=== PATIENT | male | born 1955 | race Two or more races ===

== ENCOUNTER 2023-07-04 14:20 | Day surgery (SDC) | payer OTHER ==
[~2023-07-04 14:20] MED LIST: DECITABINE (DACOGEN) 10 MG/1 ML SQ SQ ONE
[2023-07-04 15:11] LABS: BASO % 0.8 % (0-2.0); HEMATOCRIT 26.6 % (35.4-49); HEMOGLOBIN 8.5 GM/dL (11.7-16.9); LYMPH % 16.3 % (8-40); MCH 39.5 pg (25.7-33.7); MEAN CELL VOLUME 123.5 fl (80-96); MEAN PLT VOLUME 10.8 fl (7.5-11.1); MONO % 9.1 % (3.8-10.2); NEUT % 72.8 % (42.8-82.8); PLATELET COUNT 70 10^3/uL (134-434); RBC 2.15 M/mm3 (4.00-5.60); RDW 15.5 % (11.9-15.9); WHITE BLOOD COUNT 3.6 K/mm3 (4.0-10.0)
[2023-07-04 15:25] LABS: POTASSIUM 4.3 mmol/L (3.5-5.1)
[2023-07-04 15:27] LABS: CALCIUM 8.5 mg/dL (8.5-10.1)
[2023-07-04 15:28] LABS: ALBUMIN 3.8 g/dl (3.4-5.0); BLOOD UREA NITROGEN 14.7 mg/dL (7-18)
[2023-07-04 15:30] LABS: BILIRUBIN,DIRECT 0.2 mg/dL (0.0-0.2)
[2023-07-04 15:31] LABS: CREATININE 0.8 mg/dL (0.55-1.3)
[2023-07-04 15:32] LABS: BILIRUBIN,TOTAL 0.8 mg/dL (0.2-1); TOT PROT 6.8 g/dl (6.4-8.2)
[2023-07-04 15:50] LABS: ANISOCYTOSIS 2+; MACROCYTOSIS 2+; OVALOCYTE 2+
[2023-07-04 17:17] VITALS: BP 116/64; PULSE 76; RESP 18; TEMP 98.1
== END 2023-07-04 14:40 | disposition home or self-care (01) ==
LOC: JONCNONCHE 14:20 → J7W 14:21 → JONCNONCHE 14:40
PROVIDERS: ATTEND Internal Medicine Hematology & Oncology
DX: Z51.11 Encounter for antineoplastic chemotherapy (principal); D46.9 Myelodysplastic syndrome, unspecified; L98.2 Febrile neutrophilic dermatosis [Sweet]
CPT/HCPCS: 36415; 80048; 80076; 83615; 84550; 85025; 96402; J0894

== ENCOUNTER 2023-07-11 12:56 | Day surgery (SDC) | payer OTHER ==
[2023-07-11 13:59] LABS: BASO % 0.5 % (0-2.0); EOS % 1.2 % (0-4.5); HEMATOCRIT 24.4 % (35.4-49); HEMOGLOBIN 7.8 GM/dL (11.7-16.9); LYMPH % 10.9 % (8-40); MCHC 32.1 g/dl (32.0-35.9); MEAN CELL VOLUME 124.7 fl (80-96); MEAN PLT VOLUME 10.9 fl (7.5-11.1); NEUT % 79.4 % (42.8-82.8); PLATELET COUNT 58 10^3/uL (134-434); RBC 1.96 M/mm3 (4.00-5.60); RDW 16.4 % (11.9-15.9); WHITE BLOOD COUNT 4.6 K/mm3 (4.0-10.0)
[2023-07-11 14:19] LABS: MCH 40.1 pg (25.7-33.7)
[2023-07-11 14:32] LABS: POTASSIUM 4.4 mmol/L (3.5-5.1)
[2023-07-11 14:35] LABS: ALBUMIN 3.8 g/dl (3.4-5.0); BLOOD UREA NITROGEN 15.9 mg/dL (7-18); CALCIUM 8.4 mg/dL (8.5-10.1)
[2023-07-11 14:37] LABS: BILIRUBIN,DIRECT 0.2 mg/dL (0.0-0.2)
[2023-07-11 14:38] LABS: URIC ACID 5.1 mg/dL (2.6-7.2)
[2023-07-11 14:39] LABS: BILIRUBIN,TOTAL 0.7 mg/dL (0.2-1); TOT PROT 6.6 g/dl (6.4-8.2)
[2023-07-11 14:43] LABS: CREATININE 0.8 mg/dL (0.55-1.3)
[2023-07-11 15:30] LABS: ANISOCYTOSIS 1+; MACROCYTOSIS 3+
[2023-07-11 18:34] VITALS: BP 105/60; PULSE 72; RESP 20; TEMP 98.4
== END 2023-07-11 15:10 | disposition home or self-care (01) ==
LOC: JONCNONCHE 12:56 → J7W 12:56 → JONCNONCHE 15:10
PROVIDERS: ATTEND Internal Medicine Hematology & Oncology
DX: D46.9 Myelodysplastic syndrome, unspecified (principal)
CPT/HCPCS: 36415; 80048; 80076; 83615; 84550; 85025; 96401; J0894

== ENCOUNTER 2023-07-18 14:01 | Day surgery (SDC) | payer OTHER ==
[2023-07-18 15:34] LABS: POTASSIUM 4.3 mmol/L (3.5-5.1)
[2023-07-18 15:36] LABS: BLOOD UREA NITROGEN 15.4 mg/dL (7-18); CALCIUM 9.1 mg/dL (8.5-10.1)
[2023-07-18 15:37] LABS: ALBUMIN 3.9 g/dl (3.4-5.0)
[2023-07-18 15:39] LABS: BILIRUBIN,DIRECT 0.3 mg/dL (0.0-0.2); CREATININE 0.8 mg/dL (0.55-1.3); URIC ACID 4.4 mg/dL (2.6-7.2)
[2023-07-18 15:40] LABS: EOS % 1.1 % (0-4.5); HEMATOCRIT 24.3 % (35.4-49); HEMOGLOBIN 7.9 GM/dL (11.7-16.9); LYMPH % 16.1 % (8-40); MCHC 32.3 g/dl (32.0-35.9); MEAN CELL VOLUME 124.9 fl (80-96); MEAN PLT VOLUME 11.2 fl (7.5-11.1); MONO % 10.2 % (3.8-10.2); NEUT % 71.6 % (42.8-82.8); PLATELET COUNT 52 10^3/uL (134-434); RBC 1.95 M/mm3 (4.00-5.60); RDW 17.2 % (11.9-15.9); WHITE BLOOD COUNT 3.2 K/mm3 (4.0-10.0)
[2023-07-18 15:41] LABS: BILIRUBIN,TOTAL 0.7 mg/dL (0.2-1); MCH 40.4 pg (25.7-33.7); TOT PROT 6.7 g/dl (6.4-8.2)
[2023-07-18 16:55] VITALS: BP 123/61; PULSE 70; RESP 18; TEMP 98.6
== END 2023-07-18 16:50 | disposition home or self-care (01) ==
LOC: JONCNONCHE 14:01 → J7W 14:03 → JONCNONCHE 16:50
PROVIDERS: ATTEND Internal Medicine Hematology & Oncology
DX: Z51.11 Encounter for antineoplastic chemotherapy (principal); D46.9 Myelodysplastic syndrome, unspecified
CPT/HCPCS: 36415; 80048; 80076; 83615; 84550; 85025; 96401; J0894

== ENCOUNTER 2023-07-25 13:57 | Day surgery (SDC) | payer OTHER ==
[2023-07-18 15:12] LABS: BASO % 0.7 % (0-2.0); EOS % 1.3 % (0-4.5); HEMATOCRIT 23.9 % (35.4-49); HEMOGLOBIN 7.9 GM/dL (11.7-16.9); LYMPH % 16.1 % (8-40); MEAN CELL VOLUME 124.2 fl (80-96); MEAN PLT VOLUME 10.4 fl (7.5-11.1); MONO % 10.9 % (3.8-10.2); PLATELET COUNT 46 10^3/uL (134-434); RBC 1.92 M/mm3 (4.00-5.60); RDW 16.7 % (11.9-15.9); WHITE BLOOD COUNT 3.3 K/mm3 (4.0-10.0)
[2023-07-18 15:37] LABS: POTASSIUM 4.3 mmol/L (3.5-5.1)
[2023-07-18 15:44] LABS: BLOOD UREA NITROGEN 15.4 mg/dL (7-18); CALCIUM 8.4 mg/dL (8.5-10.1)
[2023-07-18 15:45] LABS: ALBUMIN 3.8 g/dl (3.4-5.0)
[2023-07-18 15:46] LABS: URIC ACID 4.7 mg/dL (2.6-7.2)
[2023-07-18 15:48] LABS: BILIRUBIN,DIRECT 0.3 mg/dL (0.0-0.2); CREATININE 0.8 mg/dL (0.55-1.3)
[2023-07-18 15:49] LABS: ANISOCYTOSIS 1+; BILIRUBIN,TOTAL 0.9 mg/dL (0.2-1); MACROCYTOSIS 1+; OVALOCYTE 1+; TOT PROT 6.6 g/dl (6.4-8.2)
[2023-07-25 14:36] LABS: HEMOGLOBIN 7.3 GM/dL (11.7-16.9); MCH 39.8 pg (25.7-33.7); MCHC 31.6 g/dl (32.0-35.9); MEAN CELL VOLUME 126.2 fl (80-96); MEAN PLT VOLUME 9.3 fl (7.5-11.1); PLATELET COUNT 72 10^3/uL (134-434); RBC 1.83 M/mm3 (4.00-5.60); RDW 17.8 % (11.9-15.9); WHITE BLOOD COUNT 3.2 K/mm3 (4.0-10.0)
[2023-07-25 14:59] LABS: POTASSIUM 4.2 mmol/L (3.5-5.1)
[2023-07-25 15:04] LABS: BLOOD UREA NITROGEN 15.2 mg/dL (7-18); CALCIUM 8.6 mg/dL (8.5-10.1)
[2023-07-25 15:06] LABS: ALBUMIN 3.5 g/dl (3.4-5.0)
[2023-07-25 15:07] LABS: BILIRUBIN,DIRECT 0.2 mg/dL (0.0-0.2)
[2023-07-25 15:08] LABS: CREATININE 0.9 mg/dL (0.55-1.3)
[2023-07-25 15:09] LABS: BILIRUBIN,TOTAL 0.6 mg/dL (0.2-1)
[2023-07-25 15:11] LABS: URIC ACID 5.8 mg/dL (2.6-7.2)
[2023-07-25 15:22] LABS: ANISOCYTOSIS 1+; MACROCYTOSIS 3+
[2023-07-25 17:37] VITALS: BP 107/52; PULSE 74; RESP 18; TEMP 97.9
== END 2023-07-25 15:40 | disposition home or self-care (01) ==
LOC: JONCNONCHE 13:57 → J7W 13:59 → JONCNONCHE 15:40
PROVIDERS: ATTEND Internal Medicine Hematology & Oncology
DX: Z51.11 Encounter for antineoplastic chemotherapy (principal); D46.9 Myelodysplastic syndrome, unspecified
CPT/HCPCS: 36415; 80048; 80076; 83615; 84550; 85025; 96401; J0894

== ENCOUNTER 2023-08-01 12:28 | Day surgery (SDC) | payer OTHER ==
[2023-08-01 12:57] LABS: HEMATOCRIT 25.3 % (35.4-49); HEMOGLOBIN 8.1 GM/dL (11.7-16.9); MCHC 32.2 g/dl (32.0-35.9); MEAN CELL VOLUME 128.1 fl (80-96); PLATELET COUNT 68 10^3/uL (134-434); RBC 1.97 M/mm3 (4.00-5.60); WHITE BLOOD COUNT 3.6 K/mm3 (4.0-10.0)
[2023-08-01 13:02] LABS: MCH 41.3 pg (25.7-33.7)
[2023-08-01 13:34] LABS: POTASSIUM 3.7 mmol/L (3.5-5.1)
[2023-08-01 13:38] LABS: CALCIUM 8.7 mg/dL (8.5-10.1)
[2023-08-01 13:41] LABS: ALBUMIN 3.5 g/dl (3.4-5.0); ANISOCYTOSIS 2+; BILIRUBIN,DIRECT 0.2 mg/dL (0.0-0.2); MACROCYTOSIS 2+
[2023-08-01 13:43] LABS: BILIRUBIN,TOTAL 0.8 mg/dL (0.2-1); TOT PROT 6.2 g/dl (6.4-8.2)
[2023-08-01 13:48] LABS: URIC ACID 5.5 mg/dL (2.6-7.2)
[2023-08-01 14:16] LABS: BLOOD UREA NITROGEN 16.6 mg/dL (7-18); CREATININE 0.9 mg/dL (0.55-1.3)
[2023-08-01 14:30] VITALS: BP 117/59; PULSE 75; RESP 18; TEMP 98.2
== END 2023-08-01 14:30 | disposition home or self-care (01) ==
LOC: JONCCHEMO 12:28 → J7W 12:30 → JONCCHEMO 14:30
PROVIDERS: ATTEND Internal Medicine Hematology & Oncology
DX: Z51.11 Encounter for antineoplastic chemotherapy (principal); D46.9 Myelodysplastic syndrome, unspecified
CPT/HCPCS: 36415; 80048; 80076; 83615; 84550; 85025; 96401; J0894

== ENCOUNTER 2023-08-08 12:57 | Day surgery (SDC) | payer OTHER ==
[2023-08-08 14:43] LABS: BASO % 0.8 % (0-2.0); EOS % 2.9 % (0-4.5); HEMATOCRIT 25.4 % (35.4-49); MCHC 31.4 g/dl (32.0-35.9); MEAN CELL VOLUME 129.1 fl (80-96); MEAN PLT VOLUME 9.8 fl (7.5-11.1); MONO % 7.1 % (3.8-10.2); NEUT % 80.2 % (42.8-82.8); PLATELET COUNT 64 10^3/uL (134-434); RBC 1.97 M/mm3 (4.00-5.60); RDW 18.5 % (11.9-15.9); WHITE BLOOD COUNT 4.2 K/mm3 (4.0-10.0)
[2023-08-08 14:48] LABS: MCH 40.5 pg (25.7-33.7)
[2023-08-08 14:58] LABS: POTASSIUM 4.1 mmol/L (3.5-5.1)
[2023-08-08 15:07] LABS: ALBUMIN 3.5 g/dl (3.4-5.0); BLOOD UREA NITROGEN 18.8 mg/dL (7-18); CALCIUM 9.2 mg/dL (8.5-10.1)
[2023-08-08 15:09] LABS: URIC ACID 5.5 mg/dL (2.6-7.2)
[2023-08-08 15:10] LABS: CREATININE 0.9 mg/dL (0.55-1.3)
[2023-08-08 15:11] LABS: BILIRUBIN,DIRECT 0.2 mg/dL (0.0-0.2)
[2023-08-08 15:12] LABS: BILIRUBIN,TOTAL 0.5 mg/dL (0.2-1); TOT PROT 6.3 g/dl (6.4-8.2)
[2023-08-08 17:17] VITALS: BP 112/46; PULSE 84; RESP 20; TEMP 98.4
== END 2023-08-08 15:45 | disposition home or self-care (01) ==
LOC: J7W 12:57 → JONCCHEMO 12:57
PROVIDERS: ATTEND Internal Medicine Hematology & Oncology
DX: Z51.11 Encounter for antineoplastic chemotherapy (principal); D46.9 Myelodysplastic syndrome, unspecified
CPT/HCPCS: 36415; 80048; 80076; 83615; 84550; 85025; 96401; J0894

== ENCOUNTER 2023-08-15 11:21 | Day surgery (SDC) | payer OTHER ==
[2023-08-15 11:59] LABS: BASO % 0.8 % (0-2.0); EOS % 2.2 % (0-4.5); HEMATOCRIT 25.4 % (35.4-49); HEMOGLOBIN 8.2 GM/dL (11.7-16.9); LYMPH % 12.6 % (8-40); MCHC 32.5 g/dl (32.0-35.9); MEAN CELL VOLUME 128.4 fl (80-96); MEAN PLT VOLUME 9.8 fl (7.5-11.1); MONO % 7.4 % (3.8-10.2); PLATELET COUNT 71 10^3/uL (134-434); RBC 1.97 M/mm3 (4.00-5.60); RDW 16.8 % (11.9-15.9); WHITE BLOOD COUNT 3.2 K/mm3 (4.0-10.0)
[2023-08-15 12:06] LABS: MCH 41.7 pg (25.7-33.7)
[2023-08-15 12:10] LABS: POTASSIUM 4.2 mmol/L (3.5-5.1)
[2023-08-15 12:13] LABS: ALBUMIN 3.7 g/dl (3.4-5.0)
[2023-08-15 12:14] LABS: BLOOD UREA NITROGEN 17.7 mg/dL (7-18)
[2023-08-15 12:16] LABS: BILIRUBIN,DIRECT 0.2 mg/dL (0.0-0.2); CREATININE 0.8 mg/dL (0.55-1.3); URIC ACID 5.4 mg/dL (2.6-7.2)
[2023-08-15 12:18] LABS: BILIRUBIN,TOTAL 0.6 mg/dL (0.2-1); TOT PROT 6.5 g/dl (6.4-8.2)
[2023-08-15 12:48] LABS: ANISOCYTOSIS 1+; MACROCYTOSIS 3+
[2023-08-15 15:23] VITALS: BP 120/56; PULSE 80; RESP 18; TEMP 98.6
== END 2023-08-15 14:00 | disposition home or self-care (01) ==
LOC: J7W 11:21 → JONCCHEMO 11:21
PROVIDERS: ATTEND Internal Medicine Hematology & Oncology
DX: Z51.11 Encounter for antineoplastic chemotherapy (principal); D46.9 Myelodysplastic syndrome, unspecified
CPT/HCPCS: 36415; 80048; 80076; 83615; 84550; 85025; 96401; J0894

== ENCOUNTER 2023-08-22 11:43 | Day surgery (SDC) | payer OTHER ==
[2023-08-22 12:44] LABS: POTASSIUM 4.3 mmol/L (3.5-5.1)
[2023-08-22 12:46] LABS: CALCIUM 8.7 mg/dL (8.5-10.1); HEMATOCRIT 26.7 % (35.4-49); HEMOGLOBIN 8.8 GM/dL (11.7-16.9); MCH 42.5 pg (25.7-33.7); MCHC 33.1 g/dl (32.0-35.9); MEAN CELL VOLUME 128.4 fl (80-96); MEAN PLT VOLUME 10.5 fl (7.5-11.1); PLATELET COUNT 73 10^3/uL (134-434); RBC 2.08 M/mm3 (4.00-5.60); RDW 16.1 % (11.9-15.9); WHITE BLOOD COUNT 2.8 K/mm3 (4.0-10.0)
[2023-08-22 12:47] LABS: ALBUMIN 3.8 g/dl (3.4-5.0)
[2023-08-22 12:49] LABS: BILIRUBIN,DIRECT 0.2 mg/dL (0.0-0.2)
[2023-08-22 12:51] LABS: BILIRUBIN,TOTAL 0.6 mg/dL (0.2-1); CREATININE 0.8 mg/dL (0.55-1.3); TOT PROT 6.7 g/dl (6.4-8.2)
[2023-08-22 14:01] LABS: ANISOCYTOSIS 0; MACROCYTOSIS 2+
[2023-08-22 15:46] VITALS: BP 110/60; PULSE 70; RESP 18; TEMP 97.9
== END 2023-08-22 15:20 | disposition home or self-care (01) ==
LOC: JONCCHEMO 11:43 → J7W 11:43 → JONCCHEMO 15:20
PROVIDERS: ATTEND Internal Medicine Hematology & Oncology
DX: Z51.11 Encounter for antineoplastic chemotherapy (principal); D46.9 Myelodysplastic syndrome, unspecified
CPT/HCPCS: 36415; 80048; 80076; 83615; 84550; 85025; 96401; J0894

== ENCOUNTER 2023-08-29 11:14 | Day surgery (SDC) | payer OTHER ==
[2023-08-29 11:51] LABS: BASO % 1.1 % (0-2.0); EOS % 3.7 % (0-4.5); HEMATOCRIT 25.7 % (35.4-49); HEMOGLOBIN 8.4 GM/dL (11.7-16.9); LYMPH % 25.6 % (8-40); MCHC 32.8 g/dl (32.0-35.9); MEAN CELL VOLUME 126.4 fl (80-96); MEAN PLT VOLUME 9.7 fl (7.5-11.1); MONO % 10.4 % (3.8-10.2); NEUT % 59.2 % (42.8-82.8); PLATELET COUNT 62 10^3/uL (134-434); RBC 2.04 M/mm3 (4.00-5.60); RDW 16.3 % (11.9-15.9); WHITE BLOOD COUNT 2.8 K/mm3 (4.0-10.0)
[2023-08-29 11:52] LABS: MCH 41.5 pg (25.7-33.7)
[2023-08-29 12:43] LABS: ANISOCYTOSIS 1+; MACROCYTOSIS 2+
[2023-08-29 13:23] LABS: ALBUMIN 3.6 g/dl (3.4-5.0); BILIRUBIN,DIRECT 0.2 mg/dL (0.0-0.2); BLOOD UREA NITROGEN 13.1 mg/dL (7-18); CALCIUM 8.8 mg/dL (8.5-10.1); CREATININE 0.8 mg/dL (0.55-1.3); POTASSIUM 4.2 mmol/L (3.5-5.1); URIC ACID 4.8 mg/dL (2.6-7.2)
[2023-08-29 13:24] LABS: BILIRUBIN,TOTAL 0.6 mg/dL (0.2-1); TOT PROT 6.6 g/dl (6.4-8.2)
[2023-08-29 17:42] VITALS: BP 120/61; PULSE 77; RESP 18; TEMP 98.6
== END 2023-08-29 14:20 | disposition home or self-care (01) ==
LOC: JONCCHEMO 11:14 → J7W 11:14 → JONCCHEMO 14:20
PROVIDERS: ATTEND Internal Medicine Hematology & Oncology
PROC: 3E013GC Introduction of Other Therapeutic Substance into Subcutaneous Tissue, Percutaneous Approach (ICD-10-PCS; principal; 2023-08-29)
DX: Z51.11 Encounter for antineoplastic chemotherapy (principal); D46.9 Myelodysplastic syndrome, unspecified
CPT/HCPCS: 36415; 80048; 80076; 83615; 84550; 85025; 96401; J0894

== ENCOUNTER 2023-09-05 11:18 | Day surgery (SDC) | payer OTHER ==
[2023-09-05 12:15] LABS: BASO % 1.4 % (0-2.0); EOS % 4.4 % (0-4.5); HEMATOCRIT 25.5 % (35.4-49); HEMOGLOBIN 8.4 GM/dL (11.7-16.9); LYMPH % 27.5 % (8-40); MEAN CELL VOLUME 127.4 fl (80-96); MEAN PLT VOLUME 10.4 fl (7.5-11.1); MONO % 9.8 % (3.8-10.2); NEUT % 56.9 % (42.8-82.8); PLATELET COUNT 66 10^3/uL (134-434); RDW 16.3 % (11.9-15.9); WHITE BLOOD COUNT 2.2 K/mm3 (4.0-10.0)
[2023-09-05 12:37] LABS: POTASSIUM 4.1 mmol/L (3.5-5.1)
[2023-09-05 12:39] LABS: CALCIUM 8.5 mg/dL (8.5-10.1)
[2023-09-05 12:40] LABS: ALBUMIN 3.8 g/dl (3.4-5.0); BLOOD UREA NITROGEN 18.6 mg/dL (7-18)
[2023-09-05 12:42] LABS: BILIRUBIN,DIRECT 0.2 mg/dL (0.0-0.2)
[2023-09-05 12:43] LABS: CREATININE 0.9 mg/dL (0.55-1.3)
[2023-09-05 12:44] LABS: TOT PROT 6.5 g/dl (6.4-8.2)
[2023-09-05 12:45] LABS: BILIRUBIN,TOTAL 0.7 mg/dL (0.2-1)
[2023-09-05 13:38] LABS: ANISOCYTOSIS 0; MACROCYTOSIS 3+
[2023-09-05 17:40] VITALS: BP 106/50; PULSE 74; RESP 16; TEMP 98.2
== END 2023-09-05 14:45 | disposition home or self-care (01) ==
LOC: JONCNONCHE 11:18
PROVIDERS: ATTEND Internal Medicine Hematology & Oncology
DX: Z51.11 Encounter for antineoplastic chemotherapy (principal); D46.9 Myelodysplastic syndrome, unspecified
CPT/HCPCS: 36415; 80048; 80076; 83615; 84550; 85025; 96401; J0894

== ENCOUNTER 2023-09-12 11:03 | Day surgery (SDC) | payer OTHER ==
[2023-09-12 11:49] LABS: HEMATOCRIT 25.6 % (35.4-49); HEMOGLOBIN 8.5 GM/dL (11.7-16.9); MCHC 33.3 g/dl (32.0-35.9); MEAN CELL VOLUME 127.9 fl (80-96); PLATELET COUNT 70 10^3/uL (134-434); RDW 16.6 % (11.9-15.9); WHITE BLOOD COUNT 2.1 K/mm3 (4.0-10.0)
[2023-09-12 11:52] LABS: MCH 42.6 pg (25.7-33.7)
[2023-09-12 12:12] LABS: CALCIUM 8.6 mg/dL (8.5-10.1)
[2023-09-12 12:13] LABS: ALBUMIN 3.8 g/dl (3.4-5.0); BLOOD UREA NITROGEN 14.7 mg/dL (7-18)
[2023-09-12 12:15] LABS: BILIRUBIN,DIRECT 0.2 mg/dL (0.0-0.2); CREATININE 0.9 mg/dL (0.55-1.3); URIC ACID 5.2 mg/dL (2.6-7.2)
[2023-09-12 12:17] LABS: BILIRUBIN,TOTAL 0.6 mg/dL (0.2-1); TOT PROT 6.3 g/dl (6.4-8.2)
[2023-09-12 12:36] LABS: ANISOCYTOSIS 2+; MACROCYTOSIS 3+; OVALOCYTE 1+
== END 2023-09-12 13:30 | disposition home or self-care (01) ==
LOC: JONCCHEMO 11:03
PROVIDERS: ATTEND Internal Medicine Hematology & Oncology
PROC: 3E033GC Introduction of Other Therapeutic Substance into Peripheral Vein, Percutaneous Approach (ICD-10-PCS; principal; 2023-09-12)
DX: Z53.8 Procedure and treatment not carried out for other reasons (principal)
CPT/HCPCS: 36415; 80048; 80076; 83615; 84550; 85025

== ENCOUNTER 2023-09-19 11:01 | Day surgery (SDC) | payer OTHER ==
[2023-09-19 11:39] LABS: HEMATOCRIT 29.1 % (35.4-49); HEMOGLOBIN 9.6 GM/dL (11.7-16.9); MCHC 32.8 g/dl (32.0-35.9); MEAN CELL VOLUME 129.5 fl (80-96); MEAN PLT VOLUME 11.5 fl (7.5-11.1); PLATELET COUNT 41 10^3/uL (134-434); RBC 2.25 M/mm3 (4.00-5.60); RDW 17.2 % (11.9-15.9); WHITE BLOOD COUNT 2.1 K/mm3 (4.0-10.0)
[2023-09-19 11:40] LABS: MCH 42.5 pg (25.7-33.7)
[2023-09-19 12:25] LABS: ANISOCYTOSIS 0; MACROCYTOSIS 3+
[2023-09-19 12:54] LABS: POTASSIUM 3.9 mmol/L (3.5-5.1)
[2023-09-19 12:56] LABS: CALCIUM 8.7 mg/dL (8.5-10.1)
[2023-09-19 12:57] LABS: ALBUMIN 3.7 g/dl (3.4-5.0); BLOOD UREA NITROGEN 15.3 mg/dL (7-18)
[2023-09-19 13:00] LABS: BILIRUBIN,DIRECT 0.2 mg/dL (0.0-0.2); CREATININE 0.8 mg/dL (0.55-1.3)
[2023-09-19 13:01] LABS: BILIRUBIN,TOTAL 0.6 mg/dL (0.2-1)
[2023-09-19 13:02] LABS: TOT PROT 6.3 g/dl (6.4-8.2)
[2023-09-19] MEDS: DECITABINE (DACOGEN) 10 MG/1 ML SQ SQ ONE (14:21)
[2023-09-19 17:18] VITALS: BP 119/52; PULSE 73; RESP 18; TEMP 98.2
== END 2023-09-19 14:45 | disposition home or self-care (01) ==
LOC: JONCNONCHE 11:01 → J7W 11:02 → JONCNONCHE 14:45
PROVIDERS: ATTEND Internal Medicine Hematology & Oncology
DX: D46.9 Myelodysplastic syndrome, unspecified (principal)
CPT/HCPCS: 36415; 80048; 80076; 83615; 84550; 85025; 96401; J0894

== ENCOUNTER 2023-09-26 10:46 | Day surgery (SDC) | payer OTHER ==
[2023-09-26 11:56] LABS: POTASSIUM 3.9 mmol/L (3.5-5.1)
[2023-09-26 11:58] LABS: CALCIUM 8.3 mg/dL (8.5-10.1)
[2023-09-26 11:59] LABS: ALBUMIN 3.6 g/dl (3.4-5.0); BLOOD UREA NITROGEN 17.9 mg/dL (7-18)
[2023-09-26 12:01] LABS: BILIRUBIN,DIRECT 0.2 mg/dL (0.0-0.2); URIC ACID 5.1 mg/dL (2.6-7.2)
[2023-09-26 12:02] LABS: CREATININE 0.8 mg/dL (0.55-1.3); HEMATOCRIT 27.7 % (35.4-49); HEMOGLOBIN 9.2 GM/dL (11.7-16.9); MCHC 33.2 g/dl (32.0-35.9); MEAN PLT VOLUME 9.1 fl (7.5-11.1); PLATELET COUNT 74 10^3/uL (134-434); RBC 2.18 M/mm3 (4.00-5.60); RDW 15.4 % (11.9-15.9)
[2023-09-26 12:03] LABS: BILIRUBIN,TOTAL 0.6 mg/dL (0.2-1); MCH 42.2 pg (25.7-33.7)
[2023-09-26 12:04] LABS: TOT PROT 6.3 g/dl (6.4-8.2)
[2023-09-26 12:54] LABS: ANISOCYTOSIS 1+; MACROCYTOSIS 1+
[2023-09-26] MEDS: DECITABINE (DACOGEN) 10 MG/1 ML SQ SQ ONE (13:29)
[2023-09-26 14:39] VITALS: BP 113/59; PULSE 71; RESP 18; TEMP 98.2
== END 2023-09-26 13:45 | disposition home or self-care (01) ==
LOC: JONCNONCHE 10:46 → J7W 10:47 → JONCNONCHE 13:45
PROVIDERS: ATTEND Internal Medicine Hematology & Oncology
DX: D46.9 Myelodysplastic syndrome, unspecified (principal)
CPT/HCPCS: 36415; 80048; 80076; 83615; 84550; 85025; 96401; J0894

== ENCOUNTER 2023-10-03 10:52 | Day surgery (SDC) | payer OTHER ==
[2023-10-03 11:15] LABS: HEMATOCRIT 27.5 % (35.4-49); HEMOGLOBIN 9.1 GM/dL (11.7-16.9); MCHC 33.2 g/dl (32.0-35.9); MEAN CELL VOLUME 125.6 fl (80-96); MEAN PLT VOLUME 9.5 fl (7.5-11.1); PLATELET COUNT 66 10^3/uL (134-434); RBC 2.19 M/mm3 (4.00-5.60); RDW 15.1 % (11.9-15.9)
[2023-10-03 11:18] LABS: MCH 41.8 pg (25.7-33.7)
[2023-10-03 11:28] LABS: WHITE BLOOD COUNT 1.8 K/mm3 (4.0-10.0)
[2023-10-03 11:53] LABS: POTASSIUM 4.2 mmol/L (3.5-5.1)
[2023-10-03 11:55] LABS: CALCIUM 8.9 mg/dL (8.5-10.1)
[2023-10-03 11:56] LABS: ALBUMIN 3.6 g/dl (3.4-5.0); BLOOD UREA NITROGEN 14.8 mg/dL (7-18)
[2023-10-03 11:58] LABS: BILIRUBIN,DIRECT 0.2 mg/dL (0.0-0.2); URIC ACID 4.8 mg/dL (2.6-7.2)
[2023-10-03 11:59] LABS: BILIRUBIN,TOTAL 0.6 mg/dL (0.2-1); CREATININE 0.8 mg/dL (0.55-1.3)
[2023-10-03 12:00] LABS: MACROCYTOSIS 3+; PLATELET ESTIMATE DECREASED; TOT PROT 6.4 g/dl (6.4-8.2)
[2023-10-03] MEDS: DECITABINE (DACOGEN) 10 MG/1 ML SQ SQ ONE (12:23)
[2023-10-04 01:52] VITALS: BP 114/57; PULSE 72; RESP 18; TEMP 97.9
== END 2023-10-03 12:30 | disposition home or self-care (01) ==
LOC: JONCNONCHE 10:52 → J7W 10:55 → JONCNONCHE 12:30
PROVIDERS: ATTEND Internal Medicine Hematology & Oncology
DX: Z51.11 Encounter for antineoplastic chemotherapy (principal); D46.9 Myelodysplastic syndrome, unspecified
CPT/HCPCS: 36415; 80048; 80076; 83615; 84550; 85025; 96401; J0894

== ENCOUNTER 2023-10-10 10:58 | Day surgery (SDC) | payer OTHER ==
[2023-10-10 12:11] LABS: BASO % 0.7 % (0-2.0); EOS % 3.2 % (0-4.5); HEMATOCRIT 28.3 % (35.4-49); HEMOGLOBIN 9.3 GM/dL (11.7-16.9); MCHC 33.1 g/dl (32.0-35.9); MEAN CELL VOLUME 126.7 fl (80-96); MEAN PLT VOLUME 9.9 fl (7.5-11.1); MONO % 8.6 % (3.8-10.2); NEUT % 73.5 % (42.8-82.8); PLATELET COUNT 68 10^3/uL (134-434); RBC 2.23 M/mm3 (4.00-5.60); RDW 14.9 % (11.9-15.9); WHITE BLOOD COUNT 3.9 K/mm3 (4.0-10.0)
[2023-10-10 12:13] LABS: MCH 41.9 pg (25.7-33.7)
[2023-10-10 12:32] LABS: POTASSIUM 3.9 mmol/L (3.5-5.1)
[2023-10-10 12:34] LABS: CALCIUM 8.6 mg/dL (8.5-10.1)
[2023-10-10 12:35] LABS: ALBUMIN 3.6 g/dl (3.4-5.0); BLOOD UREA NITROGEN 17.1 mg/dL (7-18)
[2023-10-10 12:37] LABS: BILIRUBIN,DIRECT 0.1 mg/dL (0.0-0.2); CREATININE 0.7 mg/dL (0.55-1.3); URIC ACID 4.6 mg/dL (2.6-7.2)
[2023-10-10 12:39] LABS: BILIRUBIN,TOTAL 0.5 mg/dL (0.2-1); TOT PROT 6.3 g/dl (6.4-8.2)
[2023-10-10 12:42] LABS: ANISOCYTOSIS 1+; MACROCYTOSIS 3+
[2023-10-10] MEDS: DECITABINE (DACOGEN) 10 MG/1 ML SQ SQ ONE (13:09)
[2023-10-10 14:57] VITALS: BP 122/46; PULSE 75; RESP 18; TEMP 98.8
== END 2023-10-10 13:40 | disposition home or self-care (01) ==
LOC: JONCNONCHE 10:58 → J7W 10:58 → JONCNONCHE 13:40
PROVIDERS: ATTEND Internal Medicine Hematology & Oncology
DX: Z51.11 Encounter for antineoplastic chemotherapy (principal); D46.9 Myelodysplastic syndrome, unspecified
CPT/HCPCS: 36415; 80048; 80076; 83615; 84550; 85025; 96401; J0894

== ENCOUNTER 2023-10-17 11:22 | Day surgery (SDC) | payer OTHER ==
[2023-10-17 12:33] LABS: HEMATOCRIT 28.6 % (35.4-49); HEMOGLOBIN 9.5 GM/dL (11.7-16.9); MCHC 33.3 g/dl (32.0-35.9); MEAN CELL VOLUME 124.2 fl (80-96); MEAN PLT VOLUME 10.4 fl (7.5-11.1); PLATELET COUNT 71 10^3/uL (134-434); RDW 14.6 % (11.9-15.9)
[2023-10-17 12:34] LABS: MCH 41.4 pg (25.7-33.7)
[2023-10-17 12:38] LABS: WHITE BLOOD COUNT 1.8 K/mm3 (4.0-10.0)
[2023-10-17 12:54] LABS: POTASSIUM 3.8 mmol/L (3.5-5.1)
[2023-10-17 12:57] LABS: ALBUMIN 3.7 g/dl (3.4-5.0); BLOOD UREA NITROGEN 17.1 mg/dL (7-18); CALCIUM 8.9 mg/dL (8.5-10.1)
[2023-10-17 12:59] LABS: BILIRUBIN,DIRECT 0.2 mg/dL (0.0-0.2); CREATININE 0.9 mg/dL (0.55-1.3); URIC ACID 5.7 mg/dL (2.6-7.2)
[2023-10-17 13:01] LABS: TOT PROT 6.4 g/dl (6.4-8.2)
[2023-10-17 13:02] LABS: BILIRUBIN,TOTAL 0.5 mg/dL (0.2-1)
[2023-10-17 13:19] LABS: MACROCYTOSIS 3+
[2023-10-17] MEDS: DECITABINE (DACOGEN) 10 MG/1 ML SQ SQ ONE (14:07)
[2023-10-17 14:31] VITALS: BP 112/60; PULSE 70; RESP 18; TEMP 98
== END 2023-10-17 14:30 | disposition home or self-care (01) ==
LOC: JONCNONCHE 11:22 → J7W 11:23 → JONCNONCHE 14:30
PROVIDERS: ATTEND Internal Medicine Hematology & Oncology
DX: Z51.11 Encounter for antineoplastic chemotherapy (principal); D46.9 Myelodysplastic syndrome, unspecified
CPT/HCPCS: 36415; 80048; 80076; 83615; 84550; 85025; 96401; J0894

== ENCOUNTER 2023-10-24 10:59 | Day surgery (SDC) | payer OTHER ==
[2023-10-24 11:42] LABS: BASO % 0.4 % (0-2.0); HEMATOCRIT 28.7 % (35.4-49); HEMOGLOBIN 9.5 GM/dL (11.7-16.9); LYMPH % 7.4 % (8-40); MCHC 33.2 g/dl (32.0-35.9); MEAN CELL VOLUME 124.7 fl (80-96); MEAN PLT VOLUME 9.7 fl (7.5-11.1); MONO % 4.8 % (3.8-10.2); NEUT % 87.4 % (42.8-82.8); PLATELET COUNT 84 10^3/uL (134-434); RDW 14.6 % (11.9-15.9); WHITE BLOOD COUNT 4.8 K/mm3 (4.0-10.0)
[2023-10-24 11:43] LABS: MCH 41.4 pg (25.7-33.7)
[2023-10-24 11:55] LABS: POTASSIUM 4.1 mmol/L (3.5-5.1)
[2023-10-24 11:57] LABS: ALBUMIN 3.6 g/dl (3.4-5.0); CALCIUM 9.1 mg/dL (8.5-10.1)
[2023-10-24 11:58] LABS: BLOOD UREA NITROGEN 27.5 mg/dL (7-18)
[2023-10-24 12:01] LABS: CREATININE 0.9 mg/dL (0.55-1.3)
[2023-10-24 12:02] LABS: BILIRUBIN,DIRECT 0.2 mg/dL (0.0-0.2); BILIRUBIN,TOTAL 0.5 mg/dL (0.2-1)
[2023-10-24 12:03] LABS: TOT PROT 6.4 g/dl (6.4-8.2)
[2023-10-24 12:06] LABS: URIC ACID 5.1 mg/dL (2.6-7.2)
[2023-10-24 12:15] LABS: ANISOCYTOSIS 2+; MACROCYTOSIS 3+
[2023-10-24] MEDS: DECITABINE (DACOGEN) 10 MG/1 ML SQ SQ ONE (12:45)
[2023-10-24 17:23] VITALS: BP 107/54; PULSE 81; RESP 20; TEMP 97.8
== END 2023-10-24 13:00 | disposition home or self-care (01) ==
LOC: JONCNONCHE 10:59 → J7W 11:00 → JONCNONCHE 13:00
PROVIDERS: ATTEND Internal Medicine Hematology & Oncology
DX: Z51.11 Encounter for antineoplastic chemotherapy (principal); D46.9 Myelodysplastic syndrome, unspecified
CPT/HCPCS: 36415; 80048; 80076; 83615; 84550; 85025; 96401; J0894

== ENCOUNTER 2023-10-31 11:17 | Day surgery (SDC) | payer OTHER ==
[2023-10-31 12:20] LABS: BASO % 1.2 % (0-2.0); EOS % 2.4 % (0-4.5); HEMATOCRIT 28.8 % (35.4-49); HEMOGLOBIN 9.8 GM/dL (11.7-16.9); MCHC 34.1 g/dl (32.0-35.9); MEAN CELL VOLUME 122.4 fl (80-96); MEAN PLT VOLUME 10.2 fl (7.5-11.1); MONO % 10.7 % (3.8-10.2); NEUT % 71.7 % (42.8-82.8); PLATELET COUNT 90 10^3/uL (134-434); RBC 2.36 M/mm3 (4.00-5.60); RDW 14.3 % (11.9-15.9); WHITE BLOOD COUNT 3.7 K/mm3 (4.0-10.0)
[2023-10-31 12:29] LABS: POTASSIUM 4.3 mmol/L (3.5-5.1)
[2023-10-31 12:31] LABS: CALCIUM 8.8 mg/dL (8.5-10.1)
[2023-10-31 12:32] LABS: ALBUMIN 3.6 g/dl (3.4-5.0)
[2023-10-31 12:33] LABS: BLOOD UREA NITROGEN 17.6 mg/dL (7-18)
[2023-10-31 12:34] LABS: URIC ACID 4.9 mg/dL (2.6-7.2)
[2023-10-31 12:35] LABS: CREATININE 0.8 mg/dL (0.55-1.3)
[2023-10-31 12:36] LABS: BILIRUBIN,DIRECT 0.2 mg/dL (0.0-0.2); TOT PROT 6.3 g/dl (6.4-8.2)
[2023-10-31 12:38] LABS: BILIRUBIN,TOTAL 0.7 mg/dL (0.2-1)
[2023-10-31 12:54] LABS: MCH 41.8 pg (25.7-33.7)
[2023-10-31 13:27] VITALS: BP 111/55; PULSE 74; RESP 18; TEMP 98.2
[2023-10-31] MEDS: DECITABINE (DACOGEN) 10 MG/1 ML SQ SQ ONE (13:43)
[2023-10-31 15:02] LABS: ANISOCYTOSIS 0; MACROCYTOSIS 3+
== END 2023-10-31 14:00 | disposition home or self-care (01) ==
LOC: JONCNONCHE 11:17 → J7W 11:18 → JONCNONCHE 14:00
PROVIDERS: ATTEND Internal Medicine Hematology & Oncology
DX: Z51.11 Encounter for antineoplastic chemotherapy (principal); D46.9 Myelodysplastic syndrome, unspecified
CPT/HCPCS: 36415; 80048; 80076; 83615; 84550; 85025; 96401; J0894

== ENCOUNTER 2023-11-07 11:45 | Day surgery (SDC) | payer OTHER ==
[2023-11-07 12:33] LABS: BASO % 0.9 % (0-2.0); EOS % 1.5 % (0-4.5); HEMATOCRIT 30.1 % (35.4-49); HEMOGLOBIN 10.2 GM/dL (11.7-16.9); LYMPH % 15.8 % (8-40); MEAN CELL VOLUME 123.1 fl (80-96); MEAN PLT VOLUME 8.9 fl (7.5-11.1); MONO % 10.2 % (3.8-10.2); NEUT % 71.6 % (42.8-82.8); PLATELET COUNT 60 10^3/uL (134-434); RBC 2.44 M/mm3 (4.00-5.60); WHITE BLOOD COUNT 2.9 K/mm3 (4.0-10.0)
[2023-11-07 12:37] LABS: MCH 41.9 pg (25.7-33.7)
[2023-11-07 13:07] LABS: POTASSIUM 4.2 mmol/L (3.5-5.1)
[2023-11-07 13:09] LABS: CALCIUM 8.9 mg/dL (8.5-10.1)
[2023-11-07 13:10] LABS: ALBUMIN 3.9 g/dl (3.4-5.0)
[2023-11-07 13:12] LABS: BILIRUBIN,DIRECT 0.2 mg/dL (0.0-0.2); CREATININE 0.8 mg/dL (0.55-1.3)
[2023-11-07 13:14] LABS: BILIRUBIN,TOTAL 0.6 mg/dL (0.2-1); TOT PROT 6.5 g/dl (6.4-8.2)
[2023-11-07 13:19] LABS: URIC ACID 5.5 mg/dL (2.6-7.2)
[2023-11-07 13:20] LABS: ANISOCYTOSIS 1+; MACROCYTOSIS 3+; OVALOCYTE 2+
[2023-11-07] MEDS: DECITABINE (DACOGEN) 10 MG/1 ML SQ SQ ONE (13:56)
[2023-11-07 17:09] VITALS: BP 101/50; PULSE 72; RESP 18; TEMP 98.4
== END 2023-11-07 14:10 | disposition home or self-care (01) ==
LOC: JONCNONCHE 11:45 → J7W 11:46 → JONCNONCHE 14:10
PROVIDERS: ATTEND Internal Medicine Hematology & Oncology
DX: Z51.11 Encounter for antineoplastic chemotherapy (principal); D46.9 Myelodysplastic syndrome, unspecified
CPT/HCPCS: 36415; 80048; 80076; 83615; 84550; 85025; 96401; J0894

== ENCOUNTER 2023-11-14 11:30 | Day surgery (SDC) | payer OTHER ==
[2023-11-14 12:07] LABS: BASO % 0.8 % (0-2.0); EOS % 1.8 % (0-4.5); HEMATOCRIT 27.1 % (35.4-49); LYMPH % 13.8 % (8-40); MCHC 33.2 g/dl (32.0-35.9); MEAN PLT VOLUME 9.1 fl (7.5-11.1); MONO % 12.6 % (3.8-10.2); PLATELET COUNT 83 10^3/uL (134-434); RBC 2.22 M/mm3 (4.00-5.60); RDW 14.4 % (11.9-15.9); WHITE BLOOD COUNT 2.8 K/mm3 (4.0-10.0)
[2023-11-14 12:10] LABS: MCH 40.5 pg (25.7-33.7)
[2023-11-14 12:24] LABS: ALBUMIN 3.5 g/dl (3.4-5.0); CALCIUM 8.5 mg/dL (8.5-10.1)
[2023-11-14 12:25] LABS: BLOOD UREA NITROGEN 13.9 mg/dL (7-18)
[2023-11-14 12:27] LABS: BILIRUBIN,DIRECT 0.2 mg/dL (0.0-0.2); CREATININE 0.8 mg/dL (0.55-1.3)
[2023-11-14 12:28] LABS: BILIRUBIN,TOTAL 0.6 mg/dL (0.2-1); TOT PROT 6.2 g/dl (6.4-8.2)
[2023-11-14 12:29] LABS: URIC ACID 5.3 mg/dL (2.6-7.2)
[2023-11-14 12:47] LABS: ANISOCYTOSIS 0; MACROCYTOSIS 3+
[2023-11-14] MEDS: DECITABINE (DACOGEN) 10 MG/1 ML SQ SQ ONE (13:29)
[2023-11-14 15:05] VITALS: BP 110/55; PULSE 76; RESP 20; TEMP 97.8
== END 2023-11-14 13:50 | disposition home or self-care (01) ==
LOC: JONCNONCHE 11:30 → J7W 11:57 → JONCNONCHE 13:50
PROVIDERS: ATTEND Internal Medicine Hematology & Oncology
DX: D46.9 Myelodysplastic syndrome, unspecified (principal)
CPT/HCPCS: 36415; 80048; 80076; 83615; 84550; 85025; 96401; J0894

== ENCOUNTER 2023-11-21 10:52 | Day surgery (SDC) | payer OTHER ==
[2023-11-21 11:52] LABS: BASO % 1.1 % (0-2.0); EOS % 1.5 % (0-4.5); LYMPH % 8.5 % (8-40); MCH 40.4 pg (25.7-33.7); MCHC 32.3 g/dl (32.0-35.9); MEAN CELL VOLUME 125.3 fl (80-96); MEAN PLT VOLUME 10.5 fl (7.5-11.1); MONO % 6.4 % (3.8-10.2); NEUT % 82.5 % (42.8-82.8); PLATELET COUNT 94 10^3/uL (134-434); RBC 2.23 M/mm3 (4.00-5.60); RDW 15.9 % (11.9-15.9); WHITE BLOOD COUNT 4.1 K/mm3 (4.0-10.0)
[2023-11-21 12:11] LABS: POTASSIUM 3.8 mmol/L (3.5-5.1)
[2023-11-21 12:17] LABS: CALCIUM 8.4 mg/dL (8.5-10.1)
[2023-11-21 12:18] LABS: ALBUMIN 3.6 g/dl (3.4-5.0)
[2023-11-21 12:20] LABS: BILIRUBIN,DIRECT 0.3 mg/dL (0.0-0.2); CREATININE 0.8 mg/dL (0.55-1.3); URIC ACID 5.1 mg/dL (2.6-7.2)
[2023-11-21 12:22] LABS: BILIRUBIN,TOTAL 0.8 mg/dL (0.2-1); TOT PROT 6.3 g/dl (6.4-8.2)
[2023-11-21 12:32] LABS: ANISOCYTOSIS 2+; MACROCYTOSIS 2+
[2023-11-21] MEDS: DECITABINE (DACOGEN) 10 MG/1 ML SQ SQ ONE (13:16)
[2023-11-21 17:08] VITALS: BP 128/76; PULSE 78; RESP 16; TEMP 97.8
== END 2023-11-21 13:30 | disposition home or self-care (01) ==
LOC: JONCNONCHE 10:52 → J7W 10:55 → JONCNONCHE 13:30
PROVIDERS: ATTEND Internal Medicine Hematology & Oncology
DX: D46.9 Myelodysplastic syndrome, unspecified (principal)
CPT/HCPCS: 36415; 80048; 80076; 83615; 84550; 85025; 96401; J0894

== ENCOUNTER 2023-11-28 12:25 | Day surgery (SDC) | payer OTHER ==
[2023-11-28 12:02] LABS: BASO % 0.7 % (0-2.0); EOS % 1.3 % (0-4.5); HEMATOCRIT 28.8 % (35.4-49); HEMOGLOBIN 9.3 GM/dL (11.7-16.9); MCHC 32.1 g/dl (32.0-35.9); MEAN CELL VOLUME 124.6 fl (80-96); MEAN PLT VOLUME 10.2 fl (7.5-11.1); MONO % 8.6 % (3.8-10.2); NEUT % 82.4 % (42.8-82.8); PLATELET COUNT 77 10^3/uL (134-434); RBC 2.31 M/mm3 (4.00-5.60); RDW 16.2 % (11.9-15.9); WHITE BLOOD COUNT 4.7 K/mm3 (4.0-10.0)
[2023-11-28 12:21] LABS: CHLORIDE 107 mmol/L (98-107); POTASSIUM 4.1 mmol/L (3.5-5.1); SODIUM 139 mmol/L (136-145)
[2023-11-28 12:23] LABS: CALCIUM 8.8 mg/dL (8.5-10.1)
[2023-11-28 12:24] LABS: ALBUMIN 3.8 g/dl (3.4-5.0); ANION GAP 1 mmol/L (4-13); BLOOD UREA NITROGEN 13.6 mg/dL (7-18); CO2 31 mmol/L (21-32); GLUCOSE,RANDOM 79 mg/dL (74-106)
[2023-11-28 12:26] LABS: SGPT/ALT 12 U/L (13-61); URIC ACID 5.1 mg/dL (2.6-7.2)
[2023-11-28 12:27] LABS: SGOT/AST 12 U/L (15-37)
[2023-11-28 12:28] LABS: BILIRUBIN,TOTAL 0.7 mg/dL (0.2-1); TOT PROT 6.4 g/dl (6.4-8.2)
[2023-11-28 12:29] LABS: ALK PHOS 77 U/L (45-117)
[2023-11-28 12:33] LABS: BILIRUBIN,DIRECT 0.2 mg/dL (0.0-0.2)
[2023-11-28 12:57] LABS: CREATININE 0.8 mg/dL (0.55-1.3)
[2023-11-28] MEDS: DECITABINE (DACOGEN) 10 MG/1 ML SQ SQ ONE (13:02)
[2023-11-28 13:08] VITALS: BP 113/60; PULSE 71; RESP 18; TEMP 98.3
[2023-11-28 15:18] LABS: LDH 227 U/L (87-246)
== END 2023-11-28 13:10 | disposition home or self-care (01) ==
LOC: JONCCHEMO 12:25 → J7W 12:26 → JONCCHEMO 13:10
PROVIDERS: ATTEND Internal Medicine Hematology & Oncology
DX: D46.9 Myelodysplastic syndrome, unspecified (principal)
CPT/HCPCS: 36415; 80048; 80076; 83615; 84550; 85025; 96401; J0894

== ENCOUNTER 2023-12-05 12:01 | Day surgery (SDC) | payer OTHER ==
[2023-12-05 12:33] LABS: BASO % 1.1 % (0-2.0); EOS % 1.7 % (0-4.5); HEMATOCRIT 26.4 % (35.4-49); HEMOGLOBIN 8.5 GM/dL (11.7-16.9); LYMPH % 13.1 % (8-40); MCHC 32.3 g/dl (32.0-35.9); MEAN CELL VOLUME 125.2 fl (80-96); MEAN PLT VOLUME 10.4 fl (7.5-11.1); MONO % 9.1 % (3.8-10.2); PLATELET COUNT 67 10^3/uL (134-434); RBC 2.11 M/mm3 (4.00-5.60); RDW 16.4 % (11.9-15.9); WHITE BLOOD COUNT 4.2 K/mm3 (4.0-10.0)
[2023-12-05 12:38] LABS: MCH 40.4 pg (25.7-33.7)
[2023-12-05 12:48] LABS: CHLORIDE 104 mmol/L (98-107); POTASSIUM 4.2 mmol/L (3.5-5.1); SODIUM 138 mmol/L (136-145)
[2023-12-05 12:50] LABS: ALBUMIN 3.7 g/dl (3.4-5.0); ANION GAP 5 mmol/L (4-13); CALCIUM 8.6 mg/dL (8.5-10.1); CO2 29 mmol/L (21-32)
[2023-12-05 12:51] LABS: BLOOD UREA NITROGEN 15.1 mg/dL (7-18); GLUCOSE,RANDOM 91 mg/dL (74-106)
[2023-12-05 12:53] LABS: BILIRUBIN,DIRECT 0.3 mg/dL (0.0-0.2); CREATININE 0.9 mg/dL (0.55-1.3); SGOT/AST 15 U/L (15-37); SGPT/ALT 16 U/L (13-61); URIC ACID 5.5 mg/dL (2.6-7.2)
[2023-12-05 12:55] LABS: BILIRUBIN,TOTAL 0.8 mg/dL (0.2-1); LDH 220 U/L (87-246); TOT PROT 6.4 g/dl (6.4-8.2)
[2023-12-05 12:56] LABS: ALK PHOS 78 U/L (45-117)
[2023-12-05 13:10] LABS: ANISOCYTOSIS 2+; MACROCYTOSIS 2+
[2023-12-05] MEDS: DECITABINE (DACOGEN) 10 MG/1 ML SQ SQ ONE (13:14)
[2023-12-05 14:30] VITALS: BP 120/59; PULSE 78; RESP 18; TEMP 98.1
== END 2023-12-05 13:40 | disposition home or self-care (01) ==
LOC: JONCCHEMO 12:01 → JONCNONCHE 12:01 → J7W 12:01 → JONCNONCHE 12:05 → J7W 12:05 → JONCCHEMO 13:40
PROVIDERS: ATTEND Internal Medicine Hematology & Oncology
DX: D46.9 Myelodysplastic syndrome, unspecified (principal)
CPT/HCPCS: 36415; 80048; 80076; 83615; 84550; 85025; 96401; J0894

== ENCOUNTER 2023-12-12 11:47 | Day surgery (SDC) | payer OTHER ==
[2023-12-12 12:03] LABS: BASO % 0.9 % (0-2.0); EOS % 1.9 % (0-4.5); HEMATOCRIT 25.5 % (35.4-49); HEMOGLOBIN 8.2 GM/dL (11.7-16.9); LYMPH % 12.9 % (8-40); MCHC 32.4 g/dl (32.0-35.9); MEAN CELL VOLUME 126.5 fl (80-96); MEAN PLT VOLUME 10.2 fl (7.5-11.1); MONO % 8.1 % (3.8-10.2); NEUT % 76.2 % (42.8-82.8); PLATELET COUNT 77 10^3/uL (134-434); RBC 2.01 M/mm3 (4.00-5.60); RDW 17.3 % (11.9-15.9); WHITE BLOOD COUNT 3.5 K/mm3 (4.0-10.0)
[2023-12-12 12:21] LABS: CHLORIDE 108 mmol/L (98-107); SODIUM 143 mmol/L (136-145)
[2023-12-12 12:23] LABS: CALCIUM 8.9 mg/dL (8.5-10.1)
[2023-12-12 12:24] LABS: ALBUMIN 3.5 g/dl (3.4-5.0); ANION GAP 8 mmol/L (4-13); BLOOD UREA NITROGEN 14.4 mg/dL (7-18); CO2 28 mmol/L (21-32); GLUCOSE,RANDOM 101 mg/dL (74-106)
[2023-12-12 12:26] LABS: BILIRUBIN,DIRECT 0.2 mg/dL (0.0-0.2); SGOT/AST 12 U/L (15-37); SGPT/ALT 16 U/L (13-61); URIC ACID 5.2 mg/dL (2.6-7.2)
[2023-12-12 12:27] LABS: BILIRUBIN,TOTAL 0.6 mg/dL (0.2-1); CREATININE 0.9 mg/dL (0.55-1.3); TOT PROT 6.2 g/dl (6.4-8.2)
[2023-12-12 12:29] LABS: ALK PHOS 77 U/L (45-117); LDH 209 U/L (87-246)
[2023-12-12 12:38] LABS: ANISOCYTOSIS 2+; MACROCYTOSIS 2+
[2023-12-12] MEDS: DECITABINE (DACOGEN) 10 MG/1 ML SQ SQ ONE (13:17)
[2023-12-12 18:12] VITALS: BP 110/53; PULSE 77; RESP 16; TEMP 98.3
== END 2023-12-12 13:30 | disposition home or self-care (01) ==
LOC: JONCNONCHE 11:47 → J7W 11:49 → JONCNONCHE 13:30
PROVIDERS: ATTEND Internal Medicine Hematology & Oncology
DX: Z51.11 Encounter for antineoplastic chemotherapy (principal); D46.9 Myelodysplastic syndrome, unspecified
CPT/HCPCS: 36415; 80048; 80076; 83615; 84550; 85025; 96401; J0894

== ENCOUNTER 2023-12-19 11:45 | Day surgery (SDC) | payer OTHER ==
[2023-12-19 12:37] LABS: BASO % 0.9 % (0-2.0); EOS % 1.5 % (0-4.5); HEMATOCRIT 25.7 % (35.4-49); HEMOGLOBIN 8.4 GM/dL (11.7-16.9); LYMPH % 19.3 % (8-40); MCH 41.7 pg (25.7-33.7); MCHC 32.8 g/dl (32.0-35.9); MEAN PLT VOLUME 9.7 fl (7.5-11.1); MONO % 10.2 % (3.8-10.2); NEUT % 68.1 % (42.8-82.8); PLATELET COUNT 68 10^3/uL (134-434); RBC 2.02 M/mm3 (4.00-5.60); RDW 16.9 % (11.9-15.9)
[2023-12-19 12:57] LABS: CHLORIDE 106 mmol/L (98-107); SODIUM 140 mmol/L (136-145)
[2023-12-19 13:09] LABS: ALBUMIN 3.8 g/dl (3.4-5.0); ANION GAP 6 mmol/L (4-13); BLOOD UREA NITROGEN 14.6 mg/dL (7-18); CALCIUM 8.4 mg/dL (8.5-10.1); CO2 28 mmol/L (21-32); GLUCOSE,RANDOM 134 mg/dL (74-106)
[2023-12-19 13:12] LABS: BILIRUBIN,DIRECT 0.2 mg/dL (0.0-0.2); CREATININE 0.8 mg/dL (0.55-1.3); SGOT/AST 14 U/L (15-37); SGPT/ALT 15 U/L (13-61); URIC ACID 5.5 mg/dL (2.6-7.2)
[2023-12-19 13:13] LABS: BILIRUBIN,TOTAL 0.8 mg/dL (0.2-1); LDH 240 U/L (87-246); TOT PROT 6.5 g/dl (6.4-8.2)
[2023-12-19 13:15] LABS: ALK PHOS 77 U/L (45-117)
[2023-12-19] MEDS: DECITABINE (DACOGEN) 10 MG/1 ML SQ SQ ONE (13:46)
[2023-12-19 14:59] VITALS: BP 109/48; PULSE 78; RESP 16; TEMP 98.4
== END 2023-12-19 14:10 | disposition home or self-care (01) ==
LOC: J7W 11:45 → JONCCHEMO 11:45
PROVIDERS: ATTEND Internal Medicine Hematology & Oncology
PROC: 3E013GC Introduction of Other Therapeutic Substance into Subcutaneous Tissue, Percutaneous Approach (ICD-10-PCS; principal; 2023-12-19)
DX: D46.9 Myelodysplastic syndrome, unspecified (principal)
CPT/HCPCS: 36415; 80048; 80076; 83615; 84550; 85025; J0894